=== PATIENT | female | born 1995 | race Asian ===

== ENCOUNTER 2019-08-08 18:50 | Emergency (ER) | payer OTHER ==
[~2019-08-08] VITALS: Ht 160 cm; Wt 46.7 kg
[2019-08-08 19:15] VITALS: BP 106/65
[2019-08-08] MEDS ORDERED: Mylanta II UD 30ml ORAL ONE (19:30)
[2019-08-08] MEDS ORDERED: Lidocaine 2% Visc 15ml soln ORAL ONE (19:30)
--- NOTE | 2019-08-08 19:31 | Emergency Room Report ---
History of Present Illness General Chief Complaint: Abdominal Pain Source: Patient Present Illness HPI 24 YO female presents to the ED c/o 03/16 in severity LUQ/ left lower rib pain. pain exacerbated with palpation or taking deep breaths. She denies hx of abdominal pain or significant PMHx. She reports pain worse after eating. She denies N/V/F/C. She denies constipation or diarrhea. She denies trauma or fall. She denies suspicion of . She states she just finished her period this past week. She denies cough, SOB, wheezing or recent URI. She denies back pain. She denies dysuria, urinary frequency or urgency. She denies recent travel or ill contacts with similar symptoms. Allergies: Coded Allergies: No Known Allergies (Unverified , 08/08/19) Patient History Past Medical History: see triage record Past Surgical History: none Last Menstrual Period: 08/03/19 Now: No Reviewed Nursing Documentation: PMH: Agreed; PSxH: Agreed Nursing Documentation-PMH Past Medical History: No Stated History Review of Systems All Other Systems: negative except mentioned in HPI Physical Exam Vital Signs Date Time Temp Pulse Resp B/P (MAP) Pulse Ox O2 Delivery O2 Flow Rate FiO2 08/08/19 19:03 98.6 100 18 106/65 (79) 97 Room Air Sp02 EP Interpretation: reviewed, normal General Appearance: no apparent distress, alert, GCS 15, non-toxic Head: normocephalic, atraumatic Eyes: bilateral eye normal inspection, bilateral eye PERRL ENT: hearing grossly normal, normal voice Neck: full range of motion Respiratory: lungs clear, normal breath sounds, speaking full sentences, other - TTp to the lower left Cardiovascular #1: regular rate, rhythm, no edema Gastrointestinal: normal bowel sounds, soft, other - TTP left upper quadrant abdominal pain. no LLQ, RUQ, or RLQ tenderness, soft, no peritonitis signs. Rectal: deferred Genitourinary: normal inspection Musculoskeletal: back normal, normal range of motion, gait/station normal, non- tender Neurologic: alert, motor strength/tone normal, oriented x3, sensory intact, responsive, speech normal Psychiatric: judgement/insight normal Lymphatic: no adenopathy Medical Decision Making PA Attestation Dr. Jerome is my supervising Physician whom patient management has been discussed with. Diagnostic Impression: Primary Impression: Colitis Additional Impressions: Enteritis Urinary tract infection Qualified Codes: N30.01 - Acute cystitis with hematuria ER Course 24 YO female presents to the ED c/o 03/16 in severity LUQ/ left lower rib pain. pain exacerbated with palpation or taking deep breaths. She denies hx of abdominal pain or significant PMHx. She reports pain worse after eating. She denies N/V/F/C. She denies constipation or diarrhea. She denies trauma or fall. She denies suspicion of . She states she just finished her period this past week. She denies cough, SOB, wheezing or recent URI. She denies back pain. She denies dysuria, urinary frequency or urgency. She denies recent travel or ill contacts with similar symptoms. Ddx considered but are not limited to Diverticulitis, acute appy, diarrhea,UC, PUD, GE, pancreatitis, gallstone, ovarian torsion, ectopic , PID tubo-ovarian abscess. Vital signs: are WNL, pt. is afebrile H&PE are most consistent with Epigastric/ LUQ abdominal pain, intermittent. pt. non-toxic in appearance. r/o , gastritis vs. pancreatitis. ORDERS: -CBC, CMP, LIPASE: Unremarkable /WNL -UA: Evidence of UTI with presence of bacteria and elevation of inflammatory markers. -URINE HCG: Negative -Serum Hcg Screen: Negative -CT Abdomen and Pelvis w. Contrast: Evidence of colitis and some enteritis. ED INTERVENTIONS: -PO Gi cocktail - Pepcid PO 20mg - 1 liter NS -4mg Morphine IV ---Pt. declined. DISCHARGE: At this time pt. is stable for d/c to home. Will provide printed patient care instructions, and any necessary prescriptions. Care plan and follow up instructions have been discussed with the patient prior to discharge. Labs Test 08/08/19 20:00 08/08/19 20:45 White Blood Count 10.5 K/UL (4.8-10.8) Red Blood Count 3.71 M/UL (4.20-5.40) Hemoglobin 11.4 G/DL (12.0-16.0) Hematocrit 35.0 % (37.0-47.0) Mean Corpuscular Volume 94 FL (80-99) Mean Corpuscular Hemoglobin 30.9 PG (27.0-31.0) Mean Corpuscular Hemoglobin Concent 32.7 G/DL (32.0-36.0) Red Cell Distribution Width 11.9 % (11.6-14.8) Platelet Count 222 K/UL (150-450) Mean Platelet Volume 9.3 FL (6.5-10.1) Neutrophils (%) (Auto) 83.4 % (45.0-75.0) Lymphocytes (%) (Auto) 9.8 % (20.0-45.0) Monocytes (%) (Auto) 5.2 % (1.0-10.0) Eosinophils (%) (Auto) 1.0 % (0.0-3.0) Basophils (%) (Auto) 0.6 % (0.0-2.0) Sodium Level 144 MMOL/L (136-145) Potassium Level 3.6 MMOL/L (3.5-5.1) Chloride Level 107 MMOL/L (98-107) Carbon Dioxide Level 30 MMOL/L (21-32) Anion Gap 8 mmol/L (5-15) Blood Urea Nitrogen 10 mg/dL (7-18) Creatinine 0.5 MG/DL (0.55-1.30) Estimat Glomerular Filtration Rate > 60 mL/min (>60) Glucose Level 106 MG/DL (74-106) Calcium Level 8.6 MG/DL (8.5-10.1) Total Bilirubin 0.2 MG/DL (0.2-1.0) Aspartate Amino Transf (AST/SGOT) 18 U/L (15-37) Alanine Aminotransferase (ALT/SGPT) 11 U/L (12-78) Alkaline Phosphatase 59 U/L (46-116) Total Protein 6.6 G/DL (6.4-8.2) Albumin 3.2 G/DL (3.4-5.0) Globulin 3.4 g/dL Albumin/Globulin Ratio 0.9 (1.0-2.7) Lipase 124 U/L (73-393) Human Chorionic Gonadotropin, Qual Negative (NEGATIVE) Urine Color Pale yellow Urine Appearance Slightly cloudy Urine pH 7 (4.5-8.0) Urine Specific [place] 1.005 (1.005-1.035) Urine Protein 1+ (NEGATIVE) Urine Glucose (UA) Negative (NEGATIVE) Urine Ketones Negative (NEGATIVE) Urine Blood 4+ (NEGATIVE) Urine Nitrite Negative (NEGATIVE) Urine Bilirubin Negative (NEGATIVE) Urine Urobilinogen Normal MG/DL (0.0-1.0) Urine Leukocyte Esterase 3+ (NEGATIVE) Urine RBC 0-2 /HPF (0 - 2) Urine WBC Tntc /HPF (0 - 2) Urine Squamous Epithelial Cells Moderate /LPF (NONE/OCC) Urine Bacteria Few /HPF (NONE) Urine Mucus Few /LPF (NONE/OCC) CT/MRI/US Diagnostic Results CT/MRI/US Diagnostic Results : Imaging Test Ordered: CT Abdomen and Pelvis W. Contrast Impression " Distention of the stomach with no hiatal hernia. Loops of small bowel are mildly distended along with the proximal jejunum with borderline thickening of the wall along with fluid and air levels to the distal small bowel cannot exclude enteritis. There is decompression of the descending colon with mild diverticulosis, no signs of diverticulitis. No bowel obstruction. Normal appendix. Fluid within the ascending colon. Mild to moderate free fluid in the cul-de-sac. Complex cyst within the left ovary as well as a second cyst as well" Per official radiology report- Please see report for specific details. Last Vital Signs Date Time Temp Pulse Resp B/P (MAP) Pulse Ox O2 Delivery O2 Flow Rate FiO2 08/08/19 19:03 98.6 100 18 106/65 (79) 97 Room Air Disposition: HOME, SELF-CARE Condition: Stable Scripts Dicyclomine Hcl* (DICYCLOMINE HCL*) 10 Mg Capsule 10 MG ORAL TID for pain/cramping, #9 CAP Prov: Ashley Nair 08/08/19 Omeprazole (OMEPRAZOLE) 20 Mg Capsule.dr 20 MG ORAL DAILY for 7 Days, #7 CAP Prov: Ashley Nair 08/08/19 Ranitidine Hcl* (ZANTAC*) 150 Mg Tablet 150 MG ORAL TWICE A DAY for 7 Days, #14 TAB Prov: Ashley Nair 08/08/19 Ciprofloxacin Hcl* (CIPROFLOXACIN HCL*) 500 Mg Tablet 500 MG ORAL DAILY, #5 TAB 0 Refills Prov: Ashley Nair 08/08/19 Departure Forms: Return to School Return to School On: Aug 10, 2019 School Release Restrictions: No Sports or PE Other School Release Restrictions: NO exercise or activity x 5 days. Return to Full Activity: Aug 15, 2019 Patient Instructions: Abdominal Pain, Adult, Colitis, Ovarian Cyst, Easy-to- Read, Urinary Tract Infection, [id number] Additional Instructions: Take medications as directed. Follow up with a Primary Care Provider in 3-5 days, even if your symptoms have resolved. --Please review list of primary care clinics, if you do not already have a primary care provider Return sooner to ED if new symptoms occur, or current symptoms become worse. - Please note that this Emergency Department Report was dictated using [employer] technology software, occasionally this can lead to erroneous entry secondary to interpretation by the dictation equipment. Ashley Nair Aug 08, 2019 19:31
[2019-08-08] MEDS: Morphine Sulfate 4mg/ml Inj (IV USE ONLY) IVP ONE (19:45)
[2019-08-08 20:12] LABS: BASOPHILS % (AUTO) 0.6 % (0.0-2.0); HEMOGLOBIN 11.4 G/DL (12.0-16.0); LYMPHOCYTES % (AUTO) 9.8 % (20.0-45.0); MEAN CORPUSCULAR VOLUME 94 FL (80-99); MONOCYTES % (AUTO) 5.2 % (1.0-10.0); NEUTROPHILS % (AUTO) 83.4 % (45.0-75.0); PLATELET COUNT 222 K/UL (150-450); RED BLOOD COUNT 3.71 M/UL (4.20-5.40); RED CELL DISTRIBUTION WIDTH 11.9 % (11.6-14.8); WHITE BLOOD COUNT 10.5 K/UL (4.8-10.8)
[2019-08-08 20:22] LABS: ANION GAP 8 mmol/L (5-15); BLOOD UREA NITROGEN 10 mg/dL (7-18); CALCIUM 8.6 MG/DL (8.5-10.1); CARBON DIOXIDE 30 MMOL/L (21-32); CHLORIDE 107 MMOL/L (98-107); CREATININE 0.5 MG/DL (0.55-1.30); POTASSIUM 3.6 MMOL/L (3.5-5.1); SODIUM 144 MMOL/L (136-145)
[2019-08-08 20:26] LABS: ALANINE AMINOTRANSFERASE 11 U/L (12-78); ALBUMIN 3.2 G/DL (3.4-5.0); ALBUMIN/GLOBULIN RATIO 0.9 (1.0-2.7); ALKALINE PHOSPHATASE 59 U/L (46-116); ASPARTATE AMINO TRANSFERASE 18 U/L (15-37); BILIRUBIN,TOTAL 0.2 MG/DL (0.2-1.0)
[2019-08-08] MEDS ORDERED: Omnipaque-300 100ml vial INJ PRN (20:45)
[2019-08-08 20:46] VITALS: BP 112/67
[2019-08-08 21:18] LABS: APPEARANCE,URINE SLIGHTLY CLOUDY; BILIRUBIN, URINE NEGATIVE (NEGATIVE); COLOR,URINE PALE YELLOW; GLUCOSE, URINE (UA) NEGATIVE (NEGATIVE); KETONES,URINE NEGATIVE (NEGATIVE); LEUKOCYTE ESTERASE ,URINE 3+ (NEGATIVE); NITRITE,URINE NEGATIVE (NEGATIVE); PH,URINE 7 (4.5-8.0); PROTEIN,URINE 1+ (NEGATIVE); UROBILINOGEN,URINE NORMAL MG/DL (0.0-1.0)
--- NOTE | 2019-08-08 21:43 | Diagnostic Imaging Report ---
INDICATION: Abdominal pain TECHNIQUE: Continuous helical transaxial imaging of the abdomen and pelvis was obtained from the lung bases to the pubic symphysis during intravenous contrast administration. Coronal 2-D reformats were also obtained. Study obtained in a Siemens sensation [address] Automatic Exposure Control was utilized. Total Dose length Product (DLP): 160.[address] Dose Index Volume (CTDIvol): 0.2 mGy COMPARISON: None FINDINGS: Lungs: The visualized lung bases are clear. Liver: Unremarkable Gallbladder/biliary system: Gallbladder is contracted and not evaluated well. Biliary ducts are unremarkable.. Spleen: Unremarkable Pancreas: Unremarkable Kidneys/Bladder: No hydronephrosis identified. Both kidneys enhance symmetrically. The urinary bladder is notable for mild wall thickening.. Adrenal glands: Unremarkable Aorta/IVC: Unremarkable Bowel: The stomach is distended with particulate matter presumably food. Some fluid-filled distention of small bowel noted. The appendix is normal. There is a small amount of free fluid in the pelvis. Peritoneum: Small amount of free fluid in the pelvis are demonstrated. There is a suggestion of bilateral ovarian cysts which may be evaluated with ultrasound.. Bones: Unremarkable IMPRESSION: Possible enteritis with mild distention of fluid-filled small bowel. Correlate clinically. Mild pelvic free fluid which could be physiologic. Mild thickening of the bladder wall. Consider cystitis. [facility] has communicated the preliminary results to the Emergency Department. Their findings are largely concordant with this report. The CT scanner at [facility] is accredited by the [employer] and the scans are performed using dose optimization techniques as appropriate to a performed exam including Automatic Exposure control.
[2019-08-08] MEDS ORDERED: Ciprofloxacin 500mg tab ORAL ONE (22:00)
[2019-08-08] MEDS ORDERED: Ketorolac 30mg Inj IV ONE (22:00)
[2019-08-08] MEDS ORDERED: OMEPRAZOLE20 M2 ORAL (22:01)
[2019-08-08] MEDS ORDERED: DICYCLOMINE HCL10 MG ORAL (22:01)
[2019-08-08] MEDS ORDERED: CIPROFLOXACIN500 M2 ORAL (22:01)
[2019-08-08] MEDS ORDERED: ZANTAC150 MG ORAL (22:01)
[2019-08-08] MEDS ORDERED: Dicyclomine 10mg Cap ORAL ONE (22:15)
[2019-08-08 22:20] VITALS: BP 112/67
--- NOTE | 2019-08-09 16:30 | Diagnostic Imaging Report ---
Indication: Dyspnea Comparison: None A single view chest radiograph was obtained. Findings: Cardiomediastinal appearance is within normal limits for age. The lungs are clear. Pulmonary vascularity is appropriate. The diaphragmatic contour is smooth and costophrenic angles are sharp. No pleural effusions are identified. The bones are unremarkable. Impression: No acute findings
== END 2019-08-08 22:20 | disposition home or self-care (01) ==
LOC: EMR 21:12
DX: K52.9 Noninfective gastroenteritis and colitis, unspecified (principal); N39.0 Urinary tract infection, site not specified
CPT/HCPCS: 36415; 71045; 74177; 80053; 81003; 83690; 84703; 85025; 87086; 96361; 96374; 99284; J1885; J7030; Q9967